=== PATIENT | female | born 1980 ===

== ENCOUNTER 2023-02-07 19:39 | Outpatient (CLI) | payer OTHER, MEDICAID ==
[~2023-02-07 19:39] MED LIST: FERR-57 PO; LVT.025T PO; PREN1TAB39 PO
== END 2023-02-08 06:09 ==
LOC: SLEEP 19:39
PROVIDERS: ATTEND Nurse Practitioner Family
DX: G47.33 Obstructive sleep apnea (adult) (pediatric) (principal); G47.10 Hypersomnia, unspecified
CPT/HCPCS: 95810